=== PATIENT | male | born 1955 | race Caucasian/White ===

== ENCOUNTER 2017-05-15 09:56 | Inpatient (IN) | payer SELFPAY ==
[2017-05-15] MEDS ORDERED: ONDANSETRON 4 MG/2 ML VIAL IVP ONE (10:10)
[2017-05-15] MEDS ORDERED: NS 1,000 ML IV ONE (10:10)
[2017-05-15] MEDS ORDERED: IOPAMIDOL (ISOVUE 370) 100 ML BTL IV ONE (10:17)
--- NOTE | 2017-05-15 10:25 | EDPHY ---
H & P Time Seen by Provider: 05/15/17 10:10 HPI/ROS: CHIEF COMPLAINT: Severe abdominal pain HISTORY OF PRESENT ILLNESS: 62-year-old male presents with abdominal pain. Onset of mild left lower quadrant pain 3 days ago. The pain has been constant, though waxes and wanes. The pain is currently mild, 1/10, though sometimes reaches 5/10. Unable to sleep because of pain. Associated with abdominal bloating, lack of appetite and minimal oral intake over the past 3 days. Seen by GI just prior to arrival. KUB revealed probable volvulus. No prior abdominal surgery. REVIEW OF SYSTEMS: Constitutional: No fever, no chills Eyes: No visual changes ENT: No sore throat Respiratory: No cough, no shortness of breath Cardiac: No chest pain Genitourinary: No hematuria, no dysuria Musculoskeletal: No leg pain or swelling Skin: No rash Neurological: No headache, no numbness, no weakness Psychiatric: No depression Past Medical/Surgical History: Basal cell carcinoma Social History: No recent alcohol Physical Exam: General Appearance: Alert, appears in pain with movement Eyes: Pupils equal and round, no conjunctival pallor or injection ENT, Mouth: Mucous membranes moist Neck: Normal inspection Respiratory: Lungs are clear to auscultation Cardiovascular: Regular rate and rhythm Gastrointestinal: Abdomen is distended, diffuse tenderness, tinkling bowel sounds Neurological: A&O, nonfocal, normal gait Skin: Warm and dry, no rash Extremities: Nontender, no pedal edema Psychiatric: Mood and affect normal Constitutional: Initial Vital Signs Temperature (C) 36.6 C 05/15/17 10:50 Heart Rate 85 05/15/17 10:50 Respiratory Rate 18 05/15/17 10:50 Blood Pressure 141/96 H 05/15/17 10:50 O2 Sat (%) 97 05/15/17 10:50 O2 Delivery Mode Room Air Allergies/Adverse Reactions: No Known Allergies Allergy (Unverified 05/15/17 10:51) Home Medications: Medication Instructions Recorded NK [No Known Home Meds] 05/15/17 Medical Decision Making - Diagnostics Imaging Results: CT of the abdomen and pelvis read by Dr. Park reveals acute sigmoid volvulus and a 3.2 cm cystic mass at the tail of the pancreas. ED Course/Re-evaluation: Clinical presentation consistent with bowel obstruction, most likely secondary to volvulus as seen on x-ray earlier today. Morphine and Zofran IV given for pain control. Stat CT scan of the abdomen pelvis ordered. CT scan results discussed with the patient, including the cystic mass at the tail of the pancreas. He understands the need for prompt follow-up regarding the cystic mass. He declines further pain medication. Abdominal exam is unchanged. Dr. Larry Rhodes was consulted and will see the patient at [facility]. Differential Diagnosis: Differential diagnosis includes though it is not limited to appendicitis, cholecystitis, diverticulitis, pyelonephritis, bowel perforation, small bowel obstruction. - Data Points Medications Given: Discontinued Medications Sodium Chloride (Ns) 1,000 mls @ 0 mls/hr IV EDNOW ONE; Wide Open PRN Reason: Protocol Stop: 05/15/17 10:11 Last Admin: 05/15/17 10:40 Dose: 1,000 mls Morphine Sulfate (Morphine) 6 mg IVP EDNOW ONE Stop: 05/15/17 10:11 Last Admin: 05/15/17 10:40 Dose: 4 mg Ondansetron HCl (Zofran) 4 mg IVP EDNOW ONE Stop: 05/15/17 10:11 Last Admin: 05/15/17 10:41 Dose: 4 mg Departure - Departure Disposition: [facility] Inpatient Acute Clinical Impression: Sigmoid volvulus Condition: Fair
[2017-05-15] MEDS ORDERED: LR 1,000 ML IV ONE (13:25)
[2017-05-15] MEDS ORDERED: ERTAPENEM 1 GM in NS 100 ML IV ONE (13:33)
--- NOTE | 2017-05-15 14:18 | PDHPUP ---
History & Physical Update H&P update statement: This history and physical update is based on an assessment of the patient which was completed after admission or registration (within 24 hours), but prior to the surgery/procedure. H&P update: H&P reviewed & patient examined, no change in patient's condition since H&P completed
--- NOTE | 2017-05-15 14:22 | PDGENHP ---
History & Physical History of Present Illness: ABDOMINAL PAIN AND DISTENSION. 62-YEAR-OLD MALE WITH MASSIVE ABDOMINAL DISTENTION AND PAIN FOR [address] SCANS CONSISTENT WITH SIGMOID VOLVULUS. NO PRIOR ABDOMINAL SURGERIES AND NO OBVIOUS HERNIAS Pertinent Past, Social, Family History: PAST MEDICAL HISTORY INCLUDES A KNEE SCOPE IN A RIGHT SHOULDER BASAL CELL CANCER MEDICATION: NONE. NO KNOWN ALLERGIES. REVIEW OF SYSTEMS IS NEGATIVE ON A COMPLETE 10 POINT REVIEW. FAMILY HISTORY NONCONTRIBUTORY Relevant Physical Exam: GENERAL: COMFORTABLE HEALTHY 62-YEAR-OLD MALE WHO IS QUITE DISTENDED AND AFEBRILE. HEENT: NONICTERIC WITHOUT ADENOPATHY, NO THYROMEGALY, PERRLA, NECK IS SUPPLE. CHEST CLEAR AND SYMMETRIC. COR REGULAR RHYTHM WITHOUT MURMURS. ABDOMEN SOFT AND NOT SIGNIFICANTLY TENDER BUT MASSIVELY DISTENDED WITH TYMPANY AND DECREASED BOWEL SOUNDS. NO HERNIAS ON EXAM. GENITALIA NORMAL. EXTREMITIES FULL RANGE OF MOTION FULL PULSES. SKIN WITHOUT LESIONS. NEURO EXAM IS PHYSIOLOGIC Cardiorespiratory Assessment: PROBABLE SIGMOID VOLVULUS BUT NO OBVIOUS EVIDENCE OF PERFORATION YET. PLAN: LAPAROTOMY AND SIGMOID RESECTION. RISKS AND OPTIONS FULLY DISCUSSED INCLUDING THE POSSIBILITY OF TEMPORARY COLOSTOMY AND HE WISHES TO PROCEED
--- NOTE | 2017-05-15 15:51 | CPEKG ---
Heart Rate: 102 RR Interval: 588 P-R Interval: 156 QRSD Interval: 98 QT Interval: 368 QTC Interval: 480 P [place]: 35 QRS [place]: 29 T Wave [place]: -18 EKG Severity - BORDERLINE ECG - EKG Impression: SINUS TACHYCARDIA EKG Impression: BORDERLINE T ABNORMALITIES, INFERIOR LEADS EKG Impression: NON-SPECIFIC ST DEPRESSION LATERAL LEADS Electronically Signed By: Austin Matute 16-May-2017 21:02:04
[2017-05-15] MEDS ORDERED: fentaNYL 100 MCG/2 ML INJ ONE ×3 (17:16→20:12)
[2017-05-15] MEDS ORDERED: PROPOFOL/EMULSION 500 MG/50 ML BOTTLE IV ONE (17:18)
--- NOTE | 2017-05-15 18:14 | PDANEPAE ---
ANE History of Present Illness 62 year old male with bowel obstruction. No prior medical history and no prior problems with anesthesia. ANE Past Medical History - Cardiovascular History Hx Hypertension: No Hx Arrhythmias: No Hx Chest Pain: No Hx Coronary Artery / Peripheral Vascular Disease: No Hx CHF / Valvular Disease: No Hx Palpitations: No - Pulmonary History Hx COPD: No Hx Asthma/Reactive Airway Disease: No Hx Recent Upper Respiratory Infection: No Hx Oxygen in Use at Home: No Hx Sleep Apnea: No Sleep Apnea Screening Result - Last Documented: Negative - Chronic Pain History Chronic Pain: No ANE Patient History - Allergies Allergies/Adverse Reactions: Penicillins Allergy (Verified 05/15/17 13:17) Rash - Home Medications Home Medications: Aspirin [Aspirin 325 mg (*)] 325 mg PO DAILY PRN 05/15/17 [Last Taken 05/14/17 21:00] - NPO status NPO Since - Liquids (Date): 05/14/17 NPO Since - Liquids (Time): 20:00 NPO Since - Solids (Date): 05/14/17 NPO Since - Solids (Time): 20:00 - Smoking Hx Smoking Status: Never smoked ANE Labs/Vital Signs - Vital Signs Blood Pressure: 111/90 Heart Rate: 107 Respiratory Rate: 16 O2 Sat (%): 95 Height: 177.8 cm Weight: 83.91 kg ANE Physical Exam - Airway Mallampati Score: Class 2 Mouth exam: normal dental/mouth exam - Pulmonary Pulmonary: no respiratory distress - Cardiovascular Cardiovascular: regular rate and rhythym - ASA Status ASA Status: I, E
[2017-05-15] MEDS ORDERED: LR 500 ML IV PRN (18:15)
[2017-05-15] MEDS ORDERED: METOCLOPRAMIDE 10 MG/2 ML VIAL IVP PRN (18:15)
[2017-05-15] MEDS ORDERED: DEXAMETHASONE 4 MG/ML VIAL IVP PRN (18:15)
[2017-05-15] MEDS ORDERED: fentaNYL 100 MCG/2 ML INJ IVP PRN (18:15)
[2017-05-15] MEDS ORDERED: LABETALOL HCL 50 MG/10 ML SYR IVP PRN (18:15)
[2017-05-15] MEDS ORDERED: OXYCODONE/APAP 5/325 TAB PO PRN (18:15)
[2017-05-15] MEDS ORDERED: PROMETHAZINE HCL 25 MG/ML INJ IVP PRN (18:15)
[2017-05-15] MEDS ORDERED: NALOXONE HCL 0.4 MG/ML INJ IVP PRN ×2 (18:15→19:44)
[2017-05-15] MEDS ORDERED: HYDROCODONE/APAP 5/325 TAB PO PRN (18:15)
[2017-05-15] MEDS ORDERED: HYDROmorphONE/DILAUDID 1 MG/ML SYR IVP PRN (18:15)
[2017-05-15] MEDS ORDERED: MEPERIDINE 25 MG/ML SYR IVP PRN (18:15)
[2017-05-15] MEDS ORDERED: HYDROmorphONE/DILAUDID 2 MG/ML INJ ONE (18:19)
[2017-05-15] MEDS ORDERED: PROPOFOL 200 MG/20 ML VIAL ONE (19:09)
[2017-05-15] MEDS ORDERED: BUPIVACAINE 0.5% 30 ML SDV ONE (19:16)
[2017-05-15] MEDS ORDERED: HYDROmorphONE/DILAUDID 6 MG/30 ML PCA IV PRN (19:44)
[2017-05-15] MEDS ORDERED: ASPIRIN 325 MG TAB PO PRN (19:44)
[2017-05-15] MEDS ORDERED: ONDANSETRON 4 MG/2 ML VIAL IVP PRN (19:46)
[2017-05-15] MEDS: NS W/ 20 KCl/L 1,000 ML IV SCH (21:10)
[2017-05-16] MEDS: KETOROLAC 15 MG/1 ML SDV IVP SCH ×4 (00:31→17:40)
[2017-05-16] MEDS: NS W/ 20 KCl/L 1,000 ML IV SCH (03:32)
[2017-05-16 05:57] LABS: HEMATOCRIT 32.1 % (40.0-51.0); HEMOGLOBIN 10.9 g/dL (13.7-17.5)
[2017-05-16 06:03] LABS: ANION GAP 5 mEq/L (8-16); CALCIUM 8.6 mg/dL (8.5-10.4); CARBON DIOXIDE 27 mEq/l (22-31); CHLORIDE 101 mEq/L (97-110); CREATININE 0.8 mg/dL (0.7-1.3); GLOMERULAR FILTRATION RATE > 60; GLUCOSE 134 mg/dL (70-100); POTASSIUM 5.6 mEq/L (3.5-5.2); SODIUM 133 mEq/L (134-144)
--- NOTE | 2017-05-16 10:56 | SOAPPROG ---
SOAP Progress Note Assessment/Plan: Assessment: 62 yo male POD #1 s/p ex lap with colectomy for sigmoid volvulus. Recovering well. Episode of hyperkalemia. Pathology pending. Plan: IVF without K BMP tomorrow for hyperkalemia Cont pain control NPO awaiting more bowel sounds and regular flatus before advancing. S: Patient states that his abdominal pain is much improved since the surgery. Passed flatus last night but none today, no BM. Denies F/C, N/V, SOB. No complaints at this time. O: Patient sitting up in chair. Alert and oriented, NAD. RRR Abd soft, nondistended Hypoactive BS Dressing C/D/I Normal mood and affect Objective: Vital Signs Temp Pulse Resp BP Pulse Ox 36.3 C 95 16 112/64 91 L 05/16/17 09:49 05/16/17 09:49 05/16/17 09:49 05/16/17 09:49 05/16/17 09:49 Laboratory Results 05/16/17 05:04 05/16/17 05:04 05/15/17 05/16/17 05/17/17 05:59 05:59 05:59 Intake Total 4485 0 Output Total 425 150 Balance 4060 -150 ICD10 Worksheet Patient Problems: Problems Problem Status Onset Sigmoid volvulus Acute
[2017-05-16] MEDS: NS 1,000 ML IV SCH (17:43)
[2017-05-17] MEDS: KETOROLAC 15 MG/1 ML SDV IVP SCH ×4 (00:06→18:28)
[2017-05-17] MEDS: NS 1,000 ML IV SCH (00:09)
[2017-05-17 05:26] LABS: ANION GAP 6 mEq/L (8-16); CALCIUM 8.4 mg/dL (8.5-10.4); CARBON DIOXIDE 26 mEq/l (22-31); CHLORIDE 103 mEq/L (97-110); CREATININE 0.8 mg/dL (0.7-1.3); GLOMERULAR FILTRATION RATE > 60; GLUCOSE 104 mg/dL (70-100); POTASSIUM 4.5 mEq/L (3.5-5.2); SODIUM 135 mEq/L (134-144)
[2017-05-17] MEDS ORDERED: OXYCODONE/APAP 5/325 TAB PO PRN (08:16)
--- NOTE | 2017-05-17 09:52 | SOAPPROG ---
SOAP Progress Note Assessment/Plan: Assessment: 62 yo male POD #2 s/p ex lap with colectomy for sigmoid volvulus. Recovering well. Episode of hyperkalemia resolved today after discontinuing IVF containing potassium. Pathology pending. 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 Passing flatus, had 4 bowel movements last night. Tolerating clear liquid diet. Eager to ambulate. Denies F/C, N/V, SOB. States he feels ready to go home and that he has friends who will stay with him and help to take care of him. O: Afebrile Alert and oriented, NAD. Abd soft, nondistended Normoactive BS Incision C/D/I with ashley intact Normal mood and affect Objective: Vital Signs Temp Pulse Resp BP Pulse Ox 37.2 C 83 20 126/70 H 85 L 05/17/17 07:26 05/17/17 07:26 05/17/17 07:26 05/17/17 07:26 05/17/17 07:26 Laboratory Results 05/16/17 05:04 05/17/17 04:48 05/16/17 05/17/17 05/18/17 05:59 05:59 05:59 Intake Total 3685 4832 Output Total 925 1050 250 Balance 4060 1916 -250 ICD10 Worksheet Patient Problems: Problems Problem Status Onset Sigmoid volvulus Acute
[2017-05-17] MEDS: ENOXAPARIN 40 MG/0.4 ML SYR SC SCH (10:59)
[2017-05-18] MEDS: KETOROLAC 15 MG/1 ML SDV IVP SCH ×2 (00:15→11:26)
[2017-05-18] MEDS: ENOXAPARIN 40 MG/0.4 ML SYR SC SCH (09:32)
[2017-05-18 15:16] VITALS: BP 145/76; PULSE 87; RESP 28; TEMP 99.3; O2SAT 94
--- NOTE | 2017-05-18 15:57 | SOAPPROG ---
SOAP Progress Note Assessment/Plan: Assessment: 62 yo male POD #3 s/p ex lap with colectomy for sigmoid volvulus. Recovering well. Dispo: to home today. S: Patient states that he has no pain today and has not been using his pain medication. Passing flatus, having bowel movements. Tolerating full diet. Ambulating. Denies F/C, N/V, SOB. States he feels ready to go home and that he has friends who will stay with him and help to take care of him. O: Afebrile Alert and oriented, NAD. Abd soft, nondistended Normoactive BS Incision C/D/I with ashley intact Normal mood and affect Objective: Vital Signs Temp Pulse Resp BP Pulse Ox 37.4 C 87 28 H 145/76 H 94 05/18/17 15:15 05/18/17 15:15 05/18/17 15:15 05/18/17 15:15 05/18/17 15:15 Laboratory Results 05/16/17 05:04 05/17/17 04:48 05/17/17 05/18/17 05/19/17 05:59 05:59 05:59 Intake Total 2966 1250 Output Total 1050 250 Balance 1916 1000 ICD10 Worksheet Patient Problems: Problems Problem Status Onset Sigmoid volvulus Acute
== END 2017-05-18 16:45 | disposition home or self-care (01) | DRG 345 ==
LOC: CED 09:56 → F3E 12:15
PROVIDERS: ADMIT Surgery; ATTEND Surgery
PROC: 0DBN0ZX Excision of Sigmoid Colon, Open Approach, Diagnostic (ICD-10-PCS; principal; 2017-05-15 17:15)
DX: K56.2 Volvulus (principal); K86.2 Cyst of pancreas; Z85.828 Personal history of other malignant neoplasm of skin; E87.5 Hyperkalemia
CPT/HCPCS: 74177-PO; 96374; J1170; J1335; J1650; J1885; J2704; J3010; Q9967

== ENCOUNTER → 2017-05-15 | Outpatient (CLI) | payer OTHER | LOC: CIMAGING 08:49 | PROVIDERS: ATTEND Physician Assistant | DX: K63.89 Other specified diseases of intestine (principal) | CPT/HCPCS: 74020-PO ==